=== PATIENT | male | born 1975 | race Caucasian/White ===

== ENCOUNTER → 2018-01-08 | Day surgery (SDC) | payer OTHER ==
[~2018-01-08] MED LIST: ACETAMINOPHEN 500 MG TAB ONE; ACETAMINOPHEN 500 MG TAB PO ONE; ACETAMINOPHEN 500 MG TAB PO PRN; ALBUTEROL 3 ML DEYVIAL IH PRN; BACITRACIN 50,000 UNITS/10 ML SYR IRR ONE; BUPIVACAINE 0.25% 30 ML SDV ONE; CHLORHEXIDINE GLUC HIBICLENS 118 ML BTL TP ONE; DEPO METHYLPREDNISOLONE 40 MG/ML SDV ONE; DEXAMETHASONE 4 MG/ML VIAL ONE; GABAPENTIN 300 MG CAP PO ONE; HYDROCODONE/APAP 5/325 TAB PO PRN; HYDROmorphONE/DILAUDID 2 MG/ML INJ IVP PRN; LIDOCAINE 1% 2 ML INJ ID PRN; LIDOCAINE 2% 100 MG/5 ML SYR ONE; LR 1,000 ML IV ONE; LR 500 ML IV PRN; MIDAZOLAM 2 MG/2 ML VIAL IVP ONE; MIDAZOLAM 2 MG/2 ML VIAL ONE; NALOXONE HCL 0.4 MG/ML INJ IVP PRN; ONDANSETRON 4 MG/2 ML VIAL IVP PRN; ONDANSETRON 4 MG/2 ML VIAL ONE; OXYCODONE/APAP 5/325 TAB PO PRN; PROMETHAZINE HCL 25 MG/ML INJ IVP PRN; PROPOFOL 200 MG/20 ML VIAL ONE; PROPOFOL/EMULSION 500 MG/50 ML BOTTLE IV ONE; REMIFENTANIL HCL 1 MG VIAL ONE; THROMBIN (BOVINE) 5,000 UNIT VIAL TP ONE; ceFAZolin 2 GM/SWFI 2 GM/20 ML SYR IVP ONE; fentaNYL 100 MCG/2 ML INJ IVP PRN; fentaNYL 100 MCG/2 ML INJ ONE
--- NOTE | 2018-01-08 06:57 | PDHPUP ---
History & Physical Update H&P update statement: This history and physical update is based on an assessment of the patient which was completed after admission or registration (within 24 hours), but prior to the surgery/procedure. H&P update: H&P reviewed & patient examined, no change in patient's condition since H&P completed (paper form)
[2018-01-08 13:53] VITALS: PULSE 63
--- NOTE | 2018-01-08 14:58 | PDANEPAE ---
ANE History of Present Illness right lumbosacral radiculopathy ANE Past Medical History - Cardiovascular History Hx Hypertension: No Hx Arrhythmias: No Hx Chest Pain: No Hx Coronary Artery / Peripheral Vascular Disease: No Hx CHF / Valvular Disease: No Hx Palpitations: No - Pulmonary History Hx COPD: No Hx Asthma/Reactive Airway Disease: No Hx Recent Upper Respiratory Infection: No Hx Oxygen in Use at Home: No Hx Sleep Apnea: No Sleep Apnea Screening Result - Last Documented: Negative - Neurologic History Hx Cerebrovascular Accident: No Hx Seizures: No Hx Dementia: No - Endocrine History Hx Diabetes: No Hypothyroid: No Hyperthyroid: No Obesity: no - Renal History Hx Renal Disorders: No - Liver History Hx Hepatic Disorders: No - Neurological & Psychiatric Hx Hx Neurological and Psychiatric Disorders: No - Cancer History Hx Cancer: No - Congenital Disorder History Hx Congenital Disorders: No - GI History GERD: moderate Hx Gastrointestinal Disorders: Yes Gastrointestinal History Comment: GERD - Chronic Pain History Chronic Pain: Yes - Surgical History Prior Surgeries: Bilateral meniscus repair 2012 & 2008. vasectomy 2011 ANE Review of Systems Review of systems is: negative Review of Systems: - Exercise capacity METS (RN): 6 METS ANE Patient History - Allergies Allergies/Adverse Reactions: Penicillins Allergy (Verified 01/07/18 17:04) - Home Medications Home medications: home medication list seen and reviewed Home Medications: Meloxicam 01/08/18 [Last Taken 01/07/18] Tylenol ES 500 mg (*) 01/08/18 [Last Taken 01/07/18] Zantac 01/08/18 [Last Taken 01/07/18] - NPO status NPO Since - Liquids (Date): 01/08/18 NPO Since - Liquids (Time): 06:30 NPO Since - Solids (Date): 01/07/18 NPO Since - Solids (Time): 22:00 - Anes Hx Anes Hx: no prior problems - Smoking Hx Smoking Status: Never smoked - Family Anes Hx Family Hx Anesthesia Complications: NA ANE Labs/Vital Signs - Vital Signs Blood Pressure: 128/81 Heart Rate: 63 Respiratory Rate: 14 O2 Sat (%): 98 Height: 185.42 cm Weight: 94.347 kg ANE Physical Exam - Airway Neck exam: FROM Mallampati Score: Class 1 Mouth exam: normal dental/mouth exam - Pulmonary Pulmonary: no respiratory distress - Cardiovascular Cardiovascular: regular rate and rhythym - ASA Status ASA Status: I ANE Anesthesia Plan Anesthesia Plan: general endotracheal anesthesia
--- NOTE | 2018-01-08 16:01 | POSTANESTH ---
Post Anesthetic Evaluation Cardiovascular Status: Normal, Stable Respiratory Status: Normal, Stable Level of Consciousness/Mental Status: Can Participate in Eval Pain Control: Adequate, Prn Tx Ordered Nausea/Vomiting Control: Adequate, Prn Tx Ordered Complications Possibly Related to Anesthesia: None Noted
--- NOTE | 2018-01-08 18:14 | SOAPPROG ---
SOAP Progress Note Assessment/Plan: Post Op Visit S: Awake and alert. NAD. Pt with some incisional back pain O: AFVSS/PERRLA/EOMI no droop CN 2-12 grossly intact +lt touch 5/5 BUE/BLE = CDI A/P: 42 yo male that is s/p right L5/S1 HEATH -orders in place -call with any questions or concerns -pt understands and agrees -plan for dc home later tonight 01/08/18 18:10 Objective: Vital Signs Temp Pulse Resp BP Pulse Ox 36.9 C 63 14 128/81 H 98 01/08/18 13:41 01/08/18 14:58 01/08/18 14:58 01/08/18 14:58 01/08/18 14:58 ICD10 Worksheet Patient Problems: Problems Problem Status Onset Lumbar radicular pain Acute Lumbar stenosis Acute - ICD10 Problem Qualifiers (1) Lumbar stenosis (2) Lumbar radicular pain
[2018-01-08 19:01] VITALS: TEMP 97.5
[2018-01-08 19:02] VITALS: RESP 12
[2018-01-08 19:29] VITALS: O2SAT 96
[2018-01-08 19:32] VITALS: BP 134/87
--- NOTE | 2018-01-08 19:51 | GOP ---
[f rep st] OPERATIVE REPORT DATE OF OPERATION: 01/08/2018 SURGEON: Felicia Benton MD NEUROSURGEON: Kevin Benton MD. SURGICAL LEAD: Karan Blakely PA-C PREOPERATIVE DIAGNOSIS: Absolutely huge L5-S1 disk herniation, right leg pain, right leg weakness. POSTOPERATIVE DIAGNOSIS: Absolutely huge L5-S1 disk herniation, right leg pain, right leg weakness. PROCEDURE PERFORMED: Right L5-S1 hemilaminotomy, medial facetectomy with a microdiskectomy ([id number]), microscope. FINDINGS: ESTIMATED BLOOD LOSS: 250 cc. 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 I suggested immediate surgery. There was no conservative treatment in this genet e. The risk of recurrent disk herniation was discussed. He knew there was risk of nerve injury and spinal fluid leak and he wanted to proceed. DESCRIPTION OF PROCEDURE: Patient was taken to the operating room, placed in supine position. Gener al anesthesia was begun. He was flipped prone on the Leroy frame. Care was taken to pad all points of contact. His back was sterilely prepped and draped in the usual fashion. A localizing x-ray was taken. We made a midline incision. It was 18 mm in length. The subcutaneous tissue was dissected using Bovie cautery down to the fascia, and a subperiosteal dissection was made down the right L5-S1 lamina. A localizing x-ray was taken. We placed a self-retaining retractor to give right L5-S1 lami notomy. Under the microscope, we opened ligamentum flavum and exposed the thecal sac. The thecal sac was tau t. It was immobile. Nothing could move. I could feel a very hard firm mass underneath. We worked our way out to the lateral thecal sac and I passed a ball-tip probe up underneath the thecal sac and delivered some pieces of disk. This loosened the thecal sac further, and we used a ball-tip probe to deliver more disk from the epidural space, and we continued doing this. An absolutely huge amount o f disk material was removed from the epidural space. We incised the lateral portion of the L5-S1 dis k, and removed some subannular fragments from the L5-S1 disk, but we did not perform a radical diskec manju of the entire disk itself. As we were passing the ball-tip probe underneath the thecal sac, the re was still a mass under the thecal sac and things were still not good enough. I began to work my way more aggressively with ball-tip probe on the backside of the thecal sac, and w e were able to free additional huge fragment of disk. We were able to twist it out and deliver it fr om the ventral epidural space. After doing this, I continued to palpate and feel with a ball-tip pro be in the ventral epidural space and there was still more material present. I went up to the exiting L5 nerve root as it exited underneath the L5 foramen, and there was disk underneath the 5 root, and we worked our way underneath the 5 root with a ball-tip probe and then swept it medially and inferior ly toward the L5-S1 disk, and this delivered another absolutely huge fragment. This fragment itself probably reached all the way up to the L4-5 disk. This dramatically relaxed the thecal sac and helpe d, but as I was investigating in the area around the disk space, another small piece of disk became v isible at the lateral edge of the thecal sac, and I developed this plane between the thecal sac and t his material, and I think this was actually now the true plane between the thecal sac and this disk m aterial. I passed a ball-tip up over this fragment and delivered another absolutely huge piece. It was probably the size of the large marble. It was still stuck up behind the thecal sac right above t he L5-S1 disk. This relaxed the thecal sac nicely. I then palpated from really the L4-[address] down toward the S1-S2 disk with my ball-tip probe and I could feel no additional material. We then irrigated the L5-S1 disk with large amounts of antibiotic saline and some pieces of disk came out of the L5-S1 disk space and these were removed. We then placed a little Depo-Medrol over the ri ght S1 nerve root, and then closed the incision in multiple layers using Vicryl sutures. There were no complications. There was a lot of epidural bleeding, particularly as we delivered these very larg e fragments from the spinal canal. There would be temporary heavy epidural bleeding and this account ed for the blood loss. The surgery took probably twice as long as most microdiskectomies because of the very large amount of disk in the spinal canal. COMPLICATIONS: None. /[id number]/MODL
== END | disposition home or self-care (01) ==
LOC: F3N 12:37 → UNDOADMOB 12:37 → FSGY 12:37 → EDSTATUS 15:30 → UNDODISOB 19:30
PROVIDERS: ATTEND Neurological Surgery
PROC: BR1BYZZ Fluoroscopy of Lumbosacral Joint using Other Contrast (ICD-10-PCS; principal; 2018-01-08 15:30)
PROC: 00NY0ZZ Release Lumbar Spinal Cord, Open Approach (ICD-10-PCS; principal; 2018-01-08 15:30)
DX: M51.27 Other intervertebral disc displacement, lumbosacral region (principal); M48.061 Spinal stenosis, lumbar region without neurogenic claudication; M54.16 Radiculopathy, lumbar region; Z88.0 Allergy status to penicillin
CPT/HCPCS: J0171; J0690; J1030; J1100; J2001; J2250; J2405; J2704; J3010